=== PATIENT | male | born 1985 | race Caucasian/White ===

== ENCOUNTER 2017-01-01 18:09 | Emergency (ER) | payer BC ==
[~2017-01-01] VITALS: Ht 180.3 cm; Wt 101.4 kg
[2017-01-01 18:10] VITALS: BP 172/96; PULSE 68; TEMP 36.7; Ht 180.3 cm; Wt 101.4 kg
[2017-01-01 18:12] VITALS: O2SAT 97
[2017-01-01] MEDS ORDERED: OXYC-57 PO (18:27)
[2017-01-01] MEDS ORDERED: OXYCODONE/ACETAMINOPHEN 5-325 TAB PO ONE (18:30)
[2017-01-01] MEDS ORDERED: PERCOCET HOME PACK PO ONE (18:30)
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
== END 2017-01-01 18:40 | disposition home or self-care (01) ==
LOC: C.EDB 18:10 → C.EDD 18:40
DX: T23.292A Burn of second degree of multiple sites of left wrist and hand, initial encounter (principal); X15.3XXA Contact with hot saucepan or skillet, initial encounter; Y93.G3 Activity, cooking and baking

== ENCOUNTER 2017-01-03 13:00 | Emergency (ER) | payer BC ==
[~2017-01-03] VITALS: Ht 180.3 cm; Wt 95.1 kg
[~2017-01-03 13:00] MED LIST: OXYC-57 PO
[2017-01-03 13:03] VITALS: TEMP 36.8; Ht 180.3 cm; Wt 95.1 kg
[2017-01-03] MEDS ORDERED: OXYC-57 PO (13:11)
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
[2017-01-03 14:00] VITALS: BP 127/88; PULSE 87; O2SAT 99
== END 2017-01-03 14:07 | disposition home or self-care (01) ==
LOC: C.EDB 13:02 → C.EDD 14:07
DX: T23.292D Burn of second degree of multiple sites of left wrist and hand, subsequent encounter (principal); X19.XXXD Contact with other heat and hot substances, subsequent encounter; Z09 Encounter for follow-up examination after completed treatment for conditions other than malignant neoplasm

== ENCOUNTER 2023-06-24 03:35 | Observation (INO) ==
[2023-06-24 03:39] VITALS: TEMP 97.2
--- NOTE | 2023-06-24 03:44 | Emergency Department Note ---
Impression & Plan Contusion of flank and back, Contusion of rib on right side, Muscle spasm of back ED Provider Note CHIEF COMPLAINT: Fall HISTORY OF PRESENTING ILLNESS: This 37-year-old male patient presents to the emergency department with a coworker for evaluation after a fall. 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 The steps hit him below where his vest covers so the area was not protected. Having a lot of muscle spasms in his back that are causing a lot of pain and trouble moving around. He did not hit his head. No LOC. Denies neck pain. Denies nausea or vomiting. Has SOB from the pain, but denies chest pain. History of previous broken ribs in the front per patient. He is not on any blood thinners. Has not taken anything for the symptoms yet. REVIEW OF SYSTEMS: See HPI for pertinent positives and pertinent negatives. ALLERGIES: Sulfa MEDICATIONS: None PAST MEDICAL HISTORY: Denies pertinent past medical history. Appendectomy, left shoulder surgery, and left ankle surgery. PHYSICAL EXAM: VITALS: Vitals are noted on the nurse's note and reviewed by myself. GENERAL: No acute distress, non-diaphoretic. SKIN: The patient has bruising and a superficial abrasion to the right flank area. No lacerations. Capillary reflex less than 2 seconds. HEAD: Normocephalic. No scalp tenderness or step-offs felt. EYES: Pupils equal round and reactive to light and accommodation. Conjunctivae without injection, sclerae without icterus. Extraocular movements intact. NOSE: Patent without discharge. No sinus tenderness. No septal hematoma or bleeding. MOUTH: Mucous membranes moist. Pharynx without erythema or exudate. Uvula midline. Airway patent. Tongue does not deviate. NECK: Supple without nuchal rigidity. Cervical spine is nontender. Full range of motion of the neck without tenderness. HEART: Regular rate and rhythm without murmurs gallops or rubs. LUNGS: Clear to auscultation bilaterally without wheezes, rales or rhonchi. No retractions or accessory muscle use. CHEST: The patient is tender to palpation over the right posterior and lateral lower ribs. There is possible atypical muscle spasm versus slight movement from a broken rib to the right posterior 11th and 12th ribs. No fracture crepitus. No flail chest. ABDOMEN: Positive bowel sounds x 4. Normal tympanic percussion. Soft, tender to palpation over the right flank. No masses or organomegaly. No guarding or rebound tenderness. MUSCULOSKELETAL: No tenderness of the thoracic spine or paraspinal muscles. Mildly tender to palpation over the lower lumbar spine and mostly right-sided paraspinal muscles. No tenderness with pelvic rocking. Normal range of motion of the bilateral hips without pain. Full range of motion without tenderness to palpation in all extremities. Peripheral pulses 2+. NEURO: Patient was alert and oriented to person place and time. Normal mental status exam. Normal sensation to light and sharp touch. No focal neurological deficits. DIFFERENTIAL DIAGNOSIS: Differential diagnosis includes fracture, dislocation, subluxation, contusion, renal injury, rib fracture, rib contusion, lumbar spine fracture, intra-abdominal injury, pneumothorax, intrathoracic injury, intracranial injury, neurologic, as well as other pathologies. ED COURSE AND MEDICAL DECISION MAKING: MONITOR: Continuous cafeteria monitor: Order was placed for continuous cafeteria monitor. Patient was placed on the cafeteria monitor and continuous pulse ox. Patient was noted to be in normal sinus rhythm at an initial rate of 94 bpm per my interpretation. MEDICATIONS GIVEN: Morphine 4 mg IV x 2, Zofran 4 mg IV, Valium 5 mg IV, Toradol 15 mg IV. 1 L normal saline solution bolus. Lidoderm patch placed. An order for Flexeril home pack as well as Oxy IR home pack was placed prior to the patient meeting criteria to need to be admitted. INTERPRETATION OF LABS: I interpreted the labs with full lab results as below in the lab section of this note. CBC normal. Coags normal. Glucose 116, but CMP otherwise normal. Urinalysis without evidence for blood or infection. INTERPRETATION OF IMAGING: Imaging studies were interpreted by myself and read by [facility] as per the imaging section of this note. CT scan of the chest, abdomen, and pelvis with contrast as well as CT scan of the lumbar spine without contrast showed no acute traumatic abnormalities. CONSULTATIONS: Dr. Brennan of radiology. On-call hospitalist. MDM SUMMARY: I examined the patient. The patient appeared to be in significant pain due to an injury to the right flank from falling down 4-5 icy steps while at work just prior to arrival. An IV lock was placed and labs were drawn. Laboratory studies without significant abnormalities. Urinalysis without evidence for blood or infection. CT scans of the chest, abdomen, and pelvis with contrast as well as CT scan of the lumbar spine without contrast showed no acute traumatic abnormalities. The patient was given multiple medications as above. The patient initially felt like he may be able to be discharged home, but as he tried to move to get up he developed significant spasm in his back and was unable to move from the spasm. I spoke with Dr. Brennan of radiology and asked him to give a second opinion read of the CT scans that were read by [facility] overnight. Dr. Brennan stated that he did not see any acute abnormalities either. The area of maximal pain in the right flank felt like an atypical muscle spasm versus possible movement of a rib fracture that was not seen on CT scan. The patient was independently evaluated by Dr. Damon, who agrees with the exam finding. Due to the patient's continued significant pain and spasm and inability to move or ambulate without significant discomfort, it was felt the patient required admission for pain control. I spoke to the on-call hospitalist who agreed to admit the patient for further management. Please refer to their dictation for further details. The patient's care was transferred in stable condition. DIAGNOSIS: Right Flank Contusion Right Rib Contusion Muscle Spasm of Back Past Med/Surg History Medical History (Updated 06/24/23 @ 08:26 by Howard Winter MD) No known health problems Surgical History History of ankle surgery LT History of wisdom tooth extraction History of appendectomy Family History Grandfather (Maternal) Family history of diabetes mellitus Grandmother (Paternal) Family hx of colon cancer Social History Smoking Status: Never smoker Second Hand Exposure: No; Do You Dip or Chew Tobacco: No; Hx Alcohol Use: Yes Hx Substance Use: No Preferred Language: Indonesian Communication Ability: Effective Crossing Gateman Required: No Beliefs That Will Affect Care: None Current Living Situation: Spouse Feels Safe at Home: Yes Assistive Devices: Contacts Allergies Allergies Allergy/AdvReac Type Severity Reaction Status Date / Time Sulfa (Sulfonamide Allergy Unknown Rash Verified 08/17/18 07:38 Antibiotics) Home Meds Previous Rx's Medication Instructions Recorded oxycodone-acetaminophen 5 mg-325 1 tab PO Q6H PRN pain #40 tabs 08/17/18 mg tablet Results & Data (ED) Vital Signs Vital Signs - 24 hr 06/24/23 03:37 06/24/23 04:05 06/24/23 04:07 Temperature 36.2 C L Temperature Source Temporal Artery Scan Pulse Rate 84 77 78 Pulse Rate [Left] Pulse Rhythm [Left] Pulse Strength [Left] Respiratory Rate 17 18 Respiratory Effort / Characteristics Respiratory Depth Respiratory Pattern Blood Pressure 122/80 Blood Pressure [Left Arm] Blood Pressure Mean 94 Blood Pressure Mean [Left Arm] Blood Pressure Position [Left Arm] Pulse Oximetry 96 98 Oxygen Delivery Method Room Air Sepsis Recent Fever Within 48 Hours No Sepsis New/Unexplained Change in Mental Status No Sepsis Action Taken by Nursing No Action Required 06/24/23 04:30 06/24/23 05:00 06/24/23 05:30 Temperature Temperature Source Pulse Rate 76 83 93 H Pulse Rate [Left] Pulse Rhythm [Left] Pulse Strength [Left] Respiratory Rate 22 24 21 Respiratory Effort / Characteristics Respiratory Depth Respiratory Pattern Blood Pressure 128/82 142/82 H 121/61 Blood Pressure [Left Arm] Blood Pressure Mean 97 102 81 Blood Pressure Mean [Left Arm] Blood Pressure Position [Left Arm] Pulse Oximetry 100 100 97 Oxygen Delivery Method Room Air Room Air Room Air Sepsis Recent Fever Within 48 Hours Sepsis New/Unexplained Change in Mental Status Sepsis Action Taken by Nursing 06/24/23 06:00 06/24/23 06:30 06/24/23 07:01 Temperature Temperature Source Pulse Rate 96 H 83 Pulse Rate [Left] 76 Pulse Rhythm [Left] Regular Pulse Strength [Left] Normal Respiratory Rate 23 19 18 Respiratory Effort / Characteristics Non-Labored Respiratory Depth Normal Respiratory Pattern Regular Blood Pressure 145/71 H 113/66 Blood Pressure [Left Arm] 113/61 Blood Pressure Mean 95 81 Blood Pressure Mean [Left Arm] 78 Blood Pressure Position [Left Arm] Sitting Pulse Oximetry 100 97 100 Oxygen Delivery Method Room Air Room Air Room Air Sepsis Recent Fever Within 48 Hours Sepsis New/Unexplained Change in Mental Status Sepsis Action Taken by Nursing Laboratory Data 06/24/23 03:55 06/24/23 03:55 Lab Results 06/24/23 06/24/23 Range/Units 03:55 05:58 WBC 5.74 (4.8-10.8) K/ul RBC 4.94 (4.70-6.10) M/uL Hgb 14.1 (14.0-18.0) g/dl Hct 42.5 (42.0-52.0) % MCV 86.0 (80.0-100.0) fL MCH 28.5 (25.0-34.0) pg MCHC 33.2 (32.0-36.0) g/dL RDW Std Deviation 41.8 (36.4-46.3) fL RDW Coeff of Richard 13.4 (11.5-14.5) % Plt Count 251 (130-400) K/uL MPV 9.9 (9.4-12.4) fL Immature Gran % (Auto) 0.2 % Neut % (Auto) 70.2 % Lymph % (Auto) 21.4 % Sabine % (Auto) 6.1 % Eos % (Auto) 1.4 % Baso % (Auto) 0.7 % Neut # (Auto) 4.03 (1.40-6.50) K/uL Lymph # (Auto) 1.23 (1.20-3.40) K/uL Sabine # (Auto) 0.35 (0.11-0.59) K/uL Eos # (Auto) 0.08 (0.00-0.50) K/uL Baso # (Auto) 0.04 (0.00-0.20) K/uL Immature Gran # (Auto) 0.01 (0.01-0.20) K/uL PT 10.5 (9.0-12.0) Seconds INR 1.0 (0.9-1.1) APTT 25 (21-31) Seconds PTT Ratio 0.9 Sodium 138 (136-145) mmol/L Potassium 3.9 (3.5-5.1) mmol/L Chloride 105 (98-107) mmol/L Carbon Dioxide 27 (21-32) mmol/L Anion Gap 6 (3-11) BUN 19 (6-23) mg/dl Creatinine 1.02 (0.6-1.4) mg/dl Est Cr Clr Drug Dosing Not Reportable Est GFR ( Amer) 109.9 ml/min Est GFR (Non-Af Amer) 94.8 ml/min BUN/Creatinine Ratio 18.6 (10-20) Glucose 116 H (70-99(Fasting)) mg/dl Calcium 9.3 (8.6-10.3) mg/dl Total Bilirubin 0.3 (0.2-1.0) mg/dl AST 13 (13-39) U/L ALT 16 (7-52) U/L Alkaline Phosphatase 36 (34-104) U/L Total Protein 7.4 (6.0-8.3) gm/dl Albumin 4.5 (3.4-5.0) gm/dl Globulin 2.9 (2.5-4.0) gm/dl Albumin/Globulin Ratio 1.6 (0.9-2) Urine Color Yellow Urine Appearance Clear (Clear) Urine pH 7.5 (4.5-7.5) Ur Specific Nickerson > 1.045 H (1.000-1.030) Urine Protein Negative (Negative) Urine Glucose (UA) Negative (Negative) Urine Ketones Negative (Negative) Urine Blood Negative (Negative) Urine Nitrite Negative (Negative) Urine Bilirubin Negative (Negative) Urine Urobilinogen Negative (Negative) Ur Leukocyte Esterase Negative (Negative) Administered Medications Discontinued Medications Cyclobenzaprine HCl (Flexeril 10 Mg Vial Home Pack) 1 each PO UD ONE Stop: 06/24/23 06:47 Last Admin: 06/24/23 07:18 Dose: 1 each Documented By: MARGIE Diazepam (Diazepam 5 Mg/Ml 10ml Vial) 5 mg IV NOW STA Stop: 06/24/23 07:08 Last Admin: 06/24/23 07:15 Dose: 5 mg Documented By: MARGIE Sodium Chloride (Nss) 1,000 mls @ 999 mls/hr IV .Q1H1M ONE Stop: 06/24/23 05:04 Last Infusion: 06/24/23 05:36 Dose: Infused Documented By: Admin: 06/24/23 04:28 Dose: 999 mls/hr Documented By: ABBIE Ioversol (Optiray 320 500ml) 100 ml IV ONCE ONE Stop: 06/24/23 04:32 Last Admin: 06/24/23 04:31 Dose: 83 ml Documented By: ELEUTERIO Ketorolac Tromethamine (Ketorolac Tromethamine 15 Mg/Ml Vial) 15 mg IV NOW STA Stop: 06/24/23 07:28 Last Admin: 06/24/23 07:43 Dose: 15 mg Documented By: MARGIE Lidocaine (Lidocaine 5% 1 Patch) 1 patch TD NOW STA Stop: 06/24/23 06:47 Last Admin: 06/24/23 07:17 Dose: 1 patch Documented By: MARGIE Morphine Sulfate (Morphine Sulfate 4 Mg/Ml 1 Ml Carp\Vial) 4 mg IV NOW STA Stop: 06/24/23 03:50 Last Admin: 06/24/23 03:53 Dose: 4 mg Documented By: BEULAH Morphine Sulfate (Morphine Sulfate 4 Mg/Ml 1 Ml Carp\Vial) 4 mg IV NOW STA Stop: 06/24/23 05:48 Last Admin: 06/24/23 05:58 Dose: 4 mg Documented By: ABBIE Ondansetron HCl (Ondansetron Inj 2 Mg/Ml 2 Ml Vial) 4 mg IV NOW STA Stop: 06/24/23 03:50 Last Admin: 06/24/23 03:53 Dose: 4 mg Documented By: BEULAH Oxycodone HCl (Oxycodone Ir Home Pack) 1 each PO UD ONE Stop: 06/24/23 06:47 Last Admin: 06/24/23 07:18 Dose: 1 each Documented By: MARGIE Imaging Data Radiologist's Impression: Abdomen/Pelvis CT 06/24/23 04:03 Exam(s): CT ABDOMEN + PELVIS With Contrast IV Amt: 83 ml optiray 320 EXAM: CT Abdomen and Pelvis With Intravenous Contrast CLINICAL HISTORY: Reason for exam: Trauma. TECHNIQUE: Axial computed tomography images of the abdomen and pelvis with intravenous contrast. CTDI is 23.79 mGy and DLP is 1136.75 mGy-cm. Automated exposure control was utilized for the study. A dose lowering technique was utilized adhering to the principles of ALARA. CONTRAST: Patient received 83 ml optiray 320 of IV contrast COMPARISON: No relevant prior studies available. FINDINGS: Lung bases: Unremarkable. No mass. No consolidation. ABDOMEN: Liver: Small subcentimeter liver low-density lesion, too small to characterize. Likely cyst. Gallbladder and bile ducts: Unremarkable. No calcified stones. No ductal dilation. Pancreas: Unremarkable. No mass. No ductal dilation. Spleen: Unremarkable. No splenomegaly. Adrenals: Unremarkable. No mass. Kidneys and ureters: Scarring of the left kidney. No hydronephrosis. Stomach and bowel: Colonic diverticulosis. No obstruction. No mucosal thickening. PELVIS: Appendix: Appendectomy. Bladder: Unremarkable. No mass. Reproductive: Unremarkable as visualized. ABDOMEN and PELVIS: Intraperitoneal space: Unremarkable. No free air. No significant fluid collection. Bones/joints: Degenerative changes of the lumbosacral spine. No acute fracture. No dislocation. Soft tissues: Unremarkable. Vasculature: Unremarkable. No abdominal aortic aneurysm. Lymph nodes: Unremarkable. No enlarged lymph nodes. IMPRESSION: 1. No evidence of acute internal traumatic injury or fracture. 2. Colonic diverticulosis. Electronically signed by: Mahi Mcgrath M.D. 06/24/23 05:[address] 06/24/23 04:03 Exam(s): CT CHEST With Contrast IV Amt: 83 ml optiray 320 EXAM: CT Chest With Intravenous Contrast CLINICAL HISTORY: Reason for exam: Trauma. TECHNIQUE: Axial computed tomography images of the chest with intravenous contrast. CTDI is 23.79 mGy and DLP is 1136.75 mGy-cm. Automated exposure control was utilized for the study. A dose lowering technique was utilized adhering to the principles of ALARA. CONTRAST: Patient received 83 ml optiray 320 of IV contrast COMPARISON: No relevant prior studies available. FINDINGS: Lungs: Unremarkable. No mass. No consolidation. Pleural space: Unremarkable. No pneumothorax. No significant effusion. Heart: Unremarkable. No cardiomegaly. No significant pericardial effusion. No significant coronary artery calcifications. Bones/joints: Unremarkable. No acute fracture. No dislocation. Soft tissues: Unremarkable. Vasculature: Unremarkable. No thoracic aortic aneurysm. Lymph nodes: Unremarkable. No enlarged lymph nodes. IMPRESSION: No evidence of acute internal traumatic injury or fracture Electronically signed by: Mahi Mcgrath M.D. 06/24/23 05:[address] 06/24/23 04:03 Exam(s): CT L SPINE With Contrast IV Amt: 83 ml optiray 320 EXAM: CT Lumbar Spine With Intravenous Contrast CLINICAL HISTORY: Reason for exam: Trauma. TECHNIQUE: Axial computed tomography images of the lumbar spine with intravenous contrast. CTDI is 23.79 mGy and DLP is 1136.75 mGy-cm. Automated exposure control was utilized for the study. A dose lowering technique was utilized adhering to the principles of ALARA. CONTRAST: Patient received 83 ml optiray 320 of IV contrast COMPARISON: No relevant prior studies available. FINDINGS: Vertebrae: Mild levoscoliosis centered at L2-L3. Minimal retrolisthesis of L3 on L4. No acute fracture. Discs/spinal canal/neural foramina: Mild disc bulges from L3-S1. No significant central canal stenosis. Soft tissues: Unremarkable. IMPRESSION: No evidence of acute fracture or malalignment. Electronically signed by: Mahi Mcgrath M.D. 06/24/23 05:54 AM Discharge Plan Visit Data Chief Complaint: Fall Stated Complaint: FALL,RIB PAIN,WORKERS COMP ED Provider: Tunde Damon ED Midlevel Provider: Maral Zuluaga Discharge Problem: Contusion of flank and back, Contusion of rib on right side, Muscle spasm of back Patient Disposition: Admitted As Inpatient Condition: Good Forms Stand Alone Forms: [facility], Important Visit Information Prescriptions Prescriptions: No Action oxycodone-acetaminophen 5-325 mg tablet 1 tab PO Q6H PRN (Reason: pain) Qty: 40 0RF Referrals Referrals: Yarelis Bear MD [Primary Care Provider] - Discharge Problem: Contusion of rib on right side Qualifiers: Encounter type: initial encounter Qualified Code(s): S20.211A - Contusion of right front wall of thorax, initial encounter
[2023-06-24] MEDS: ONDANSETRON INJ 2 MG/ML 2 ML VIAL IV STA (03:53)
[2023-06-24] MEDS: MoRPHine SULFATE 4 MG/ML 1 ML CARP\\VIAL IV STA ×2 (03:53→05:58)
[2023-06-24] MEDS: SODIUM CHLORIDE 0.9% 1,000 ML IV ONE (04:28)
[2023-06-24 04:30] LABS: Basophils # (auto) 0.04 K/uL (0.00-0.20); Basophils % (auto) 0.7 %; Eosinophils # (auto) 0.08 K/uL (0.00-0.50); Eosinophils % (auto) 1.4 %; Hematocrit (blood only) 42.5 % (42.0-52.0); Hemoglobin 14.1 g/dl (14.0-18.0); Immature Granulocytes # (auto) 0.01 K/uL (0.01-0.20); Immature Granulocytes % (auto) 0.2 %; Lymphocytes # (auto) 1.23 K/uL (1.20-3.40); Lymphocytes % (auto) 21.4 %; Mean Corpuscular Hemoglobin 28.5 pg (25.0-34.0); Mean Corpuscular Hgb Conc 33.2 g/dL (32.0-36.0); Mean Platelet Volume 9.9 fL (9.4-12.4); Monocytes # (auto) 0.35 K/uL (0.11-0.59); Monocytes % (auto) 6.1 %; Neutrophils # (auto) 4.03 K/uL (1.40-6.50); Neutrophils % (auto) 70.2 %; Platelet Count 251 K/uL (130-400); RDW Coefficient of Variation 13.4 % (11.5-14.5); RDW Standard Deviation 41.8 fL (36.4-46.3); Red Blood Count 4.94 M/uL (4.70-6.10); White Blood Count 5.74 K/ul (4.8-10.8)
[2023-06-24] MEDS: OPTIRAY 320 500ml IV ONE (04:31)
[2023-06-24 04:35] LABS: Alanine Aminotransferase 16 U/L (7-52); Albumin Globulin Ratio 1.6 (0.9-2); Albumin Level 4.5 gm/dl (3.4-5.0); Alkaline Phosphatase 36 U/L (34-104); Anion Gap 6 (3-11); Aspartate Aminotransferase 13 U/L (13-39); BUN Creatinine Ratio 18.6 (10-20); Bilirubin,Total 0.3 mg/dl (0.2-1.0); Blood Urea Nitrogen 19 mg/dl (6-23); Calcium 9.3 mg/dl (8.6-10.3); Carbon Dioxide 27 mmol/L (21-32); Chloride 105 mmol/L (98-107); Est GFR (African American) 109.9 ml/min; Est GFR (Non-African American) 94.8 ml/min; Globulin 2.9 gm/dl (2.5-4.0); Glucose 116 mg/dl (70-99(Fasting)); Potassium 3.9 mmol/L (3.5-5.1); Sodium 138 mmol/L (136-145); Total Protein 7.4 gm/dl (6.0-8.3)
[2023-06-24 04:47] LABS: Partial Thromboplastin Ratio 0.9; Partial Thromboplastin Time 25 Seconds (21-31); Prothrombin Time 10.5 Seconds (9.0-12.0)
--- NOTE | 2023-06-24 05:51 | CT Scan Report ---
Exam(s): CT CHEST With Contrast IV Amt: 83 ml optiray 320 EXAM: CT Chest With Intravenous Contrast CLINICAL HISTORY: Reason for exam: Trauma. TECHNIQUE: Axial computed tomography images of the chest with intravenous contrast. CTDI is 23.79 mGy and DLP is 1136.75 mGy-cm. Automated exposure control was utilized for the study. A dose lowering technique was utilized adhering to the principles of ALARA. CONTRAST: Patient received 83 ml optiray 320 of IV contrast COMPARISON: No relevant prior studies available. FINDINGS: Lungs: Unremarkable. No mass. No consolidation. Pleural space: Unremarkable. No pneumothorax. No significant effusion. Heart: Unremarkable. No cardiomegaly. No significant pericardial effusion. No significant coronary artery calcifications. Bones/joints: Unremarkable. No acute fracture. No dislocation. Soft tissues: Unremarkable. Vasculature: Unremarkable. No thoracic aortic aneurysm. Lymph nodes: Unremarkable. No enlarged lymph nodes. IMPRESSION: No evidence of acute internal traumatic injury or fracture Electronically signed by: Mahi Mcgrath M.D. 06/24/23 05:50 AM
--- NOTE | 2023-06-24 05:53 | CT Scan Report ---
Exam(s): CT ABDOMEN + PELVIS With Contrast IV Amt: 83 ml optiray 320 EXAM: CT Abdomen and Pelvis With Intravenous Contrast CLINICAL HISTORY: Reason for exam: Trauma. TECHNIQUE: Axial computed tomography images of the abdomen and pelvis with intravenous contrast. CTDI is 23.79 mGy and DLP is 1136.75 mGy-cm. Automated exposure control was utilized for the study. A dose lowering technique was utilized adhering to the principles of ALARA. CONTRAST: Patient received 83 ml optiray 320 of IV contrast COMPARISON: No relevant prior studies available. FINDINGS: Lung bases: Unremarkable. No mass. No consolidation. ABDOMEN: Liver: Small subcentimeter liver low-density lesion, too small to characterize. Likely cyst. Gallbladder and bile ducts: Unremarkable. No calcified stones. No ductal dilation. Pancreas: Unremarkable. No mass. No ductal dilation. Spleen: Unremarkable. No splenomegaly. Adrenals: Unremarkable. No mass. Kidneys and ureters: Scarring of the left kidney. No hydronephrosis. Stomach and bowel: Colonic diverticulosis. No obstruction. No mucosal thickening. PELVIS: Appendix: Appendectomy. Bladder: Unremarkable. No mass. Reproductive: Unremarkable as visualized. ABDOMEN and PELVIS: Intraperitoneal space: Unremarkable. No free air. No significant fluid collection. Bones/joints: Degenerative changes of the lumbosacral spine. No acute fracture. No dislocation. Soft tissues: Unremarkable. Vasculature: Unremarkable. No abdominal aortic aneurysm. Lymph nodes: Unremarkable. No enlarged lymph nodes. IMPRESSION: 1. No evidence of acute internal traumatic injury or fracture. 2. Colonic diverticulosis. Electronically signed by: Mahi Mcgrath M.D. 06/24/23 05:52 AM
--- NOTE | 2023-06-24 05:56 | CT Scan Report ---
Exam(s): CT L SPINE With Contrast IV Amt: 83 ml optiray 320 EXAM: CT Lumbar Spine With Intravenous Contrast CLINICAL HISTORY: Reason for exam: Trauma. TECHNIQUE: Axial computed tomography images of the lumbar spine with intravenous contrast. CTDI is 23.79 mGy and DLP is 1136.75 mGy-cm. Automated exposure control was utilized for the study. A dose lowering technique was utilized adhering to the principles of ALARA. CONTRAST: Patient received 83 ml optiray 320 of IV contrast COMPARISON: No relevant prior studies available. FINDINGS: Vertebrae: Mild levoscoliosis centered at L2-L3. Minimal retrolisthesis of L3 on L4. No acute fracture. Discs/spinal canal/neural foramina: Mild disc bulges from L3-S1. No significant central canal stenosis. Soft tissues: Unremarkable. IMPRESSION: No evidence of acute fracture or malalignment. Electronically signed by: Mahi Mcgrath M.D. 06/24/23 05:54 AM
[2023-06-24 06:15] LABS: Appearance Urine Clear (Clear); Bilirubin Urine Negative (Negative); Blood Urine Negative (Negative); Color Urine Yellow; Glucose Urine UA Negative (Negative); Ketones Urine Negative (Negative); Leukocyte Esterase Urine Negative (Negative); Nitrite Urine Negative (Negative); Protein Urine Negative (Negative); Specific Gravity Urine > 1.045 (1.000-1.030); Urobilinogen Urine Negative (Negative); pH Urine 7.5 (4.5-7.5)
[2023-06-24] MEDS: diazePAM 5 MG/ML 10ML VIAL IV STA ×2 (07:15→08:50)
[2023-06-24] MEDS: LIDOCAINE 5% 1 PATCH TD STA (07:17)
[2023-06-24] MEDS: FLEXERIL 10 MG PO ONE (07:18)
[2023-06-24] MEDS: oxyCODONE IR HOME PACK PO ONE (07:18)
[2023-06-24] MEDS: KETOROLAC TROMETHAMINE 15 MG/ML VIAL IV STA ×2 (07:43→08:50)
--- NOTE | 2023-06-24 08:26 | History & Physical Report ---
Date of Service June 24, 2023 Assessment & Plan (1) Muscle spasm of back: Plan: Acetaminophen 1g TID Toradol 30mg IV q6h PRN for breakthrough pain Lidocaine patch Heating pad Diazepam 5mg IV given in the ER to good effect without sedation, will give additional 5mg now then PO q6h PRN for ongoing muscle spasms, suspect he can be discharged on Flexeril or equivalent Rehydrated in the ER with 1L NSS bolus, urine specific gravity high therefore will give an additional 1L bolus Home once spasms/pain controlled (2) Fall: Plan: Slipped on ice. No further workup required. Plan VTE Prophylaxis - low risk Diet - regular Disposition - observation to med/surg Admission and Anticipated Discharge Date Admission Date: Jun 24, 2023 History of Present Illness Chief Complaint: Right lower back pain Primary Care Provider: Yarelis Bear MD Jarvis Graham is a 37-year-old male who presents to the ER due to a fall down 4 steps. He slipped on the top of her step due to being icy and fell onto the right side of his chest. Having intermittent muscle spasm pain severity 10/10 in the ER despite morphine 4 mg IV x 2, diazepam 5 mg IV and Toradol 15 mg IV. The recently given diazepam and Toradol has significantly helped with his pain and spasms. He denies hitting his head or any loss of consciousness. Denies any other injuries or pain from falling. Allergies Allergy/AdvReac Type Severity Reaction Status Date / Time Sulfa (Sulfonamide Allergy Unknown Rash Verified 06/24/23 10:02 Antibiotics) Home Medications Medication Instructions Recorded Confirmed Type No Known Home Medications 06/24/23 06/24/23 History Past Med/Surg History Medical History (Updated 06/24/23 @ 08:35 by Howard Winter MD) No known health problems Surgical History History of ankle surgery LT History of wisdom tooth extraction History of appendectomy Family History Grandfather (Maternal) Family history of diabetes mellitus Grandmother (Paternal) Family hx of colon cancer Social History Smoking Status: Never smoker Second Hand Exposure: No; Do You Dip or Chew Tobacco: No; Hx Alcohol Use: Yes Hx Substance Use: No Preferred Language: Mexican Communication Ability: Effective Seat Nailer Required: No Beliefs That Will Affect Care: None Current Living Situation: Spouse Feels Safe at Home: Yes Assistive Devices: Contacts Physical Exam Constitutional: WD/WN, vitals as above Eyes: + anicteric sclerae; normal pupil size ENMT: external ear and nose normal, oropharynx normal Respiratory: normal respiratory effort, lungs clear to auscultation Cardiovascular: RRR, no murmur, no edema Chest (Breasts): Additional Comments: No ecchymosis but significant pain over the right posterior lower ribs more so than right paraspinal area. No central spinal pain on palpation. Visible muscle spasm present. Gastrointestinal (Abdomen): normal bowel sounds, soft, nontender, no hepatosplenomegaly Musculoskeletal: no cyanosis or clubbing, extremities motor strength 5/5 Skin: no rashes, warm and dry Neurologic: moves all extremities and awake; not confused Psychiatric: A+Ox3, euthymic affect Results & Data Results & Data Vital Signs (Past 12 Hours) Vital Signs Temp Pulse Pulse Resp BP BP Pulse Ox 06/24/23 08:00 92 H 19 87/55 L 92 06/24/23 07:31 82 14 94/58 L 95 06/24/23 07:01 76 18 113/61 100 06/24/23 07:00 78 23 113/61 100 06/24/23 06:30 83 19 113/66 97 06/24/23 06:00 96 H 23 145/71 H 100 06/24/23 05:30 93 H 21 121/61 97 06/24/23 05:00 83 24 142/82 H 100 06/24/23 04:30 76 22 128/82 100 06/24/23 04:07 78 18 98 06/24/23 04:05 77 06/24/23 03:37 36.2 C L 84 17 122/80 96 O2 Del Method 06/24/23 08:00 Room Air 06/24/23 07:31 Room Air 06/24/23 07:01 Room Air 06/24/23 07:00 Room Air 06/24/23 06:30 Room Air 06/24/23 06:00 Room Air 06/24/23 05:30 Room Air 06/24/23 05:00 Room Air 06/24/23 04:30 Room Air 06/24/23 04:07 Room Air 06/24/23 04:05 06/24/23 03:37 Laboratory Results Abnormal lab results 06/24/23 06/24/23 Range/Units 03:55 05:58 Glucose 116 H (70-99(Fasting)) mg/dl Ur Specific [place] > 1.045 H (1.000-1.030) Diagnostic Findings CT Abdomen and Pelvis With Intravenous Contrast CLINICAL HISTORY: Reason for exam: Trauma. TECHNIQUE: Axial computed tomography images of the abdomen and pelvis with intravenous contrast. CTDI is 23.79 mGy and DLP is 1136.75 mGy-cm. Automated exposure control was utilized for the study. A dose lowering technique was utilized adhering to the principles of ALARA. CONTRAST: Patient received 83 ml optiray 320 of IV contrast COMPARISON: No relevant prior studies available. FINDINGS: Lung bases: Unremarkable. No mass. No consolidation. ABDOMEN: Liver: Small subcentimeter liver low-density lesion, too small to characterize. Likely cyst. Gallbladder and bile ducts: Unremarkable. No calcified stones. No ductal dilation. Pancreas: Unremarkable. No mass. No ductal dilation. Spleen: Unremarkable. No splenomegaly. Adrenals: Unremarkable. No mass. Kidneys and ureters: Scarring of the left kidney. No hydronephrosis. Stomach and bowel: Colonic diverticulosis. No obstruction. No mucosal thickening. PELVIS: Appendix: Appendectomy. Bladder: Unremarkable. No mass. Reproductive: Unremarkable as visualized. ABDOMEN and PELVIS: Intraperitoneal space: Unremarkable. No free air. No significant fluid collection. Bones/joints: Degenerative changes of the lumbosacral spine. No acute fracture. No dislocation. Soft tissues: Unremarkable. Vasculature: Unremarkable. No abdominal aortic aneurysm. Lymph nodes: Unremarkable. No enlarged lymph nodes. IMPRESSION: 1. No evidence of acute internal traumatic injury or fracture. 2. Colonic diverticulosis. CT Chest With Intravenous Contrast CLINICAL HISTORY: Reason for exam: Trauma. TECHNIQUE: Axial computed tomography images of the chest with intravenous contrast. CTDI is 23.79 mGy and DLP is 1136.75 mGy-cm. Automated exposure control was utilized for the study. A dose lowering technique was utilized adhering to the principles of ALARA. CONTRAST: Patient received 83 ml optiray 320 of IV contrast COMPARISON: No relevant prior studies available. FINDINGS: Lungs: Unremarkable. No mass. No consolidation. Pleural space: Unremarkable. No pneumothorax. No significant effusion. Heart: Unremarkable. No cardiomegaly. No significant pericardial effusion. No significant coronary artery calcifications. Bones/joints: Unremarkable. No acute fracture. No dislocation. Soft tissues: Unremarkable. Vasculature: Unremarkable. No thoracic aortic aneurysm. Lymph nodes: Unremarkable. No enlarged lymph nodes. IMPRESSION: No evidence of acute internal traumatic injury or fracture Medications Administered ER medications given: Morphine 4 mg IV Ondansetron 4 mg IV Normal saline 1 L bolus Morphine 4 mg IV Lidocaine patch Diazepam 5 mg IV Toradol 15 mg IV ECG Rate (beats per minute): 90 Rhythm: normal sinus Findings: no acute ischemic change Comparison ECG Date: no prior available Code Status & VTE Plan Code Status Full VTE Prophylaxis Plan VTE Prophylaxis will be ordered: No Reason for no VTE drug order: Treatment not indicated PG Care Time/CCT Total # of Minutes Spent Total Time Spent with Patient: Total time spent is greater than 50% in coordination of care (as documented) at patient's floor/unit and/or counseling patient: Coding Level of Care Code 27744 INT INP/OBS CARE 2/MIN Diagnoses Muscle spasm of back M62.830 Fall W19.XXXA
[2023-06-24] MEDS: SODIUM CHLORIDE 0.9% 1,000 ML IV STA (08:50)
[2023-06-24] MEDS: ACETAMINOPHEN 500 MG TAB PO STA (08:50)
[2023-06-24] MEDS ORDERED: diazePAM 5 MG TABLET PO PRN (10:37)
[2023-06-24] MEDS ORDERED: KETOROLAC 30 MG/ML VIAL IV PRN (10:37)
[2023-06-24] MEDS: ACETAMINOPHEN 500 MG TAB PO SCH (11:19)
[2023-06-24 15:35] VITALS: BP 106/60; PULSE 61; RESP 22; O2SAT 95
--- NOTE | 2023-06-24 15:41 | Discharge Summary ---
Date of Service June 24, 2023 Admission HPI Per Admitting Provider Jarvis Graham is a 37-year-old male who presents to the ER due to a fall down 4 steps. He slipped on the top of her step due to being icy and fell onto the right side of his chest. Having intermittent muscle spasm pain severity 10/10 in the ER despite morphine 4 mg IV x 2, diazepam 5 mg IV and Toradol 15 mg IV. The recently given diazepam and Toradol has significantly helped with his pain and spasms. He denies hitting his head or any loss of consciousness. Denies any other injuries or pain from falling. Principal Diagnosis Right lower intercostal muscle spasm Discharge Exam Constitutional WD/WN, vitals as above Eyes + anicteric sclerae; normal pupil size ENMT external ear and nose normal, oropharynx normal Respiratory normal respiratory effort, lungs clear to auscultation Cardiovascular RRR, no murmur, no edema Gastrointestinal (Abdomen) normal bowel sounds, soft, nontender, no hepatosplenomegaly Musculoskeletal no cyanosis or clubbing, extremities motor strength 5/5 Skin no rashes, warm and dry Neurologic moves all extremities and awake; not confused Psychiatric A+Ox3, euthymic affect Discharge Data Allergies Allergy/AdvReac Type Severity Reaction Status Date / Time Sulfa (Sulfonamide Allergy Unknown Rash Verified 06/28/23 13:02 Antibiotics) Consultations 06/24/23 07:57 ED Decision to Admit Stat Ordered Studies 06/24/23 04:03 CT abd pelvis IV con only Stat IMPRESSION: 1. No evidence of acute internal traumatic injury or fracture. 2. Colonic diverticulosis. CT chest diagnostic w con Stat IMPRESSION: No evidence of acute internal traumatic injury or fracture CT lumbar spine w con Stat IMPRESSION: No evidence of acute fracture or malalignment. Hospital Course (1) Muscle spasm of back: Jarvis Graham is a 37 year old male observed at [facility] on June 24, 2023 following a fall. He was diagnosed with right intercostal muscle spasms and treated with muscle relaxants and pain medication. He improved throughout the day and wished to be discharged. He was advised to use acetaminophen 1 g oral 3 times a day scheduled for the next few days with ibuprofen 600 mg every 6 hours as needed for breakthrough pain. Use Flexeril 10 mg q8h PRN for muscle spasms. Can use lidocaine patches and hot wattle bottle as needed. No lifting with his right arm for the next week or pulling himself up with this side. He was advised to follow up with his primary care physician for ongoing recommendations. Consider follow up with chiropractor if persistent. (2) Fall: Total Time Total Time Spent Total Time Spent (In Minutes): 20 Discharge Plan Discharge Items Patient Disposition: Home - Self-Care Reason For Visit: INTRACTABLE MUSCLE SPASM PAIN Discharge Diagnosis: Right lower intercostal muscle spasm Condition on Discharge: Good Activity: As commented below Non-emergency contact: Primary Care Provider Call non-emergency contact if: you have any medication questions and your symptoms worsen Follow-up/Referrals: Yarelis Bear MD [Primary Care Provider] - Diet: Regular Addtl Attending Provider Instructions: You observed at [facility] on June 24, 2023 following a fall. He was diagnosed with right intercostal muscle spasms and treated with muscle relaxants and pain medication. You improved throughout the day and wish to be discharged. Do not drive while taking muscle relaxants or pain medication. Use acetaminophen 1 g oral 3 times a day scheduled for the next few days with ibuprofen 600 mg every 6 hours as needed for breakthrough pain. Use Flexeril 10 mg q8h PRN for muscle spasms. Can use lidocaine patches and hot wattle bottle as needed. Do not fall asleep with heating pads / water bottles. No lifting with your right arm for the next week or pulling yourself up with this side. Please follow up with your primary care physician for ongoing recommendations. Consider follow up with chiropractor if persistent Pending Studies at Discharge: No Stand-Alone Forms: My [facility], Smoking Cessation Medications and DC Order Prescriptions: No Action acetaminophen [Tylenol] 325 mg tablet 325 mg PO QID PRN cyclobenzaprine 10 mg tablet 10 mg PO HS PRN (Reason: muscle spasm) Qty: 10 0RF Discharge Orders: Discharge Order (Routine); Ordered 06/24/23 Ordered By: Howard Winter Admission Data Admit Date/Time: 06/24/23 08:24 Attending Provider: Howard Winter Admit Provider: Howard Winter Primary Care Provider: Yarelis Bear V. Other Interventions: Discharge Summary Assessment (RN) Last Done: 06/24/23 16:16 Coding Level of Care Code None Diagnoses Muscle spasm of back M62.830 Fall W19.XXXA
--- NOTE | 2023-06-24 16:47 | Electrocardiogram Report ---
Test Reason : Blood Pressure : / mmHG Vent. Rate : 090 BPM Atrial Rate : 090 BPM P-R Int : 204 ms QRS Dur : 088 ms QT Int : 358 ms P-R-T Axes : 069 071 064 degrees QTc Int : 437 ms Normal sinus rhythm Normal ECG No previous ECGs available Confirmed by Miguel Christensen ([id number]) on 06/24/2023 4:46:43 PM Referred By: REFERRED SELF Confirmed By:Lucio Christensen
[2023-06-25] MEDS ORDERED: LIDOCAINE 5% 1 PATCH TD SCH (09:00)
== END 2023-06-24 16:17 | disposition home or self-care (01) ==
LOC: EDINP 03:35 → ED 03:35 → EDINP 10:36
DX: W00.0XXA Fall on same level due to ice and snow, initial encounter; Z88.2 Allergy status to sulfonamides; Y99.0 Civilian activity done for income or pay; S20.211A Contusion of right front wall of thorax, initial encounter; M62.830 Muscle spasm of back; S30.0XXA Contusion of lower back and pelvis, initial encounter